=== PATIENT | female | born 1955 | race African-American/Black ===

== ENCOUNTER 2016-05-22 00:53 | Emergency (ER) | payer OTHER ==
[~2016-05-22] VITALS: Ht 170.2 cm; Wt 86.2 kg
[2016-05-22] MEDS ORDERED: SIMVASTATIN40 MG ORAL (01:11)
[2016-05-22 01:15] VITALS: BP 137/73
[2016-05-22] MEDS ORDERED: Ketorolac 30mg Inj IV ONE (01:30)
--- NOTE | 2016-05-22 01:32 | Emergency Room Report ---
History of Present Illness General Chief Complaint: General Complaint Source: Patient Present Illness HPI Is a 61-year-old female who presents with chief complaint of epigastric pain the last 2 days. No appetite. Has not eaten anything. Heaters weak. No bowel movement. Nausea but no vomiting. Heaters weak. Denies any urinary complaint. No cough or congestion. No chest pain. Allergies: Coded Allergies: No Known Allergies (Unverified , 05/22/16) Patient History Past Medical History: see triage record, old chart reviewed Past Surgical History: other Pertinent Family History: none Social History: Denies: smoking Last Menstrual Period: NO MORE Now: No : 0 Para: 0 Immunizations: other Reviewed Nursing Documentation: PMH: Agreed, PSxH: Agreed Review of Systems Constitutional: Reports: weakness Eye: Denies: blurred vision, eye pain ENT: Denies: ear pain, nose congestion, throat swelling Respiratory: Denies: cough, shortness of breath Cardiovascular: Denies: chest pain, palpitations Gastrointestinal: Reports: abdominal pain, Denies: diarrhea, nausea, vomiting Musculoskeletal: Denies: back pain, joint pain Skin: Denies: rash Neurological: Denies: headache, numbness Endocrine: Denies: increased thirst, increased urine Hematologic/Lymphatic: Denies: easy bruising All Other Systems: negative except mentioned in HPI Physical Exam Vital Signs Date Time Temp Pulse Resp B/P Pulse Ox O2 Delivery O2 Flow Rate FiO2 05/22/16 01:02 100.9 100 18 143/92 95 Room Air vitals with low-grade fever Sp02 EP Interpretation: reviewed, normal General Appearance: well appearing, no apparent distress, alert Head: normocephalic, atraumatic Eyes: bilateral eye EOMI, bilateral eye PERRL ENT: hearing grossly normal, normal pharynx Neck: full range of motion, supple, no meningismus Respiratory: chest non-tender, lungs clear, normal breath sounds Cardiovascular #1: regular rate, rhythm, no murmur Gastrointestinal: normal bowel sounds, non tender, no mass, no organomegaly, no bruit, non-distended Musculoskeletal: back normal, gait/station normal, normal range of motion Psychiatric: mood/affect normal Skin: warm/dry Medical Decision Making Diagnostic Impression: Primary Impression: Abdominal pain Qualified Codes: R10.13 - Epigastric pain Additional Impressions: Dehydration Proteinuria UTI (urinary tract infection) Qualified Codes: N30.00 - Acute cystitis without hematuria ER Course Patient presents with epigastric pain and low-grade fever. She may have a mild enteritis/viral illness. Maybe urinary tract infection. I see no evidence of acute abdomen, obstruction, or pneumonia. CT scan showed right lung base infiltrate. This is most likely atelectasis. She has no cough or fever. Lungs are clear. Oxygen 100%. The high density finding in the rectum is probably the Pepto-Bismol that she took yesterday. No evidence of rectal bleeding. Lab Results Impression labs unremarkable CT/MRI/US Diagnostic Results CT/MRI/US Diagnostic Results : Imaging Test Ordered: CT abdomen and pelvis Impression Read by radiologist. Normal appendix. No diverticulitis. Right lung base infiltrate. Last Vital Signs Date Time Temp Pulse Resp B/P Pulse Ox O2 Delivery O2 Flow Rate FiO2 05/22/16 01:02 100.9 100 18 143/92 95 Room Air Status: improved Disposition: HOME, SELF-CARE Condition: Stable Scripts Omeprazole Magnesium (PRILOSEC OTC) 20 Mg Tablet. 20 MG ORAL DAILY, #30 TAB Prov: SHALINI ARCOS M.D. 05/22/16 Cephalexin* (KEFLEX*) 500 Mg Capsule 500 MG ORAL TID, #21 CAP 0 Refills Prov: SHALINI ARCOS M.D. 05/22/16 Additional Instructions: Followup with your DrMaynor in 2 to 3 days. Return if symptom worsen. SHALINI ARCOS M.D. May 22, 2016 01:32
[2016-05-22 02:01] LABS: APPEARANCE,URINE CLEAR; KETONES,URINE 3+ (NEGATIVE); LEUKOCYTE ESTERASE ,URINE 1+ (NEGATIVE); NITRITE,URINE NEGATIVE (NEGATIVE); PH,URINE 5 (4.5-8.0); PROTEIN,URINE 2+ (NEGATIVE); UROBILINOGEN,URINE 1 MG/DL (0.0-1.0)
[2016-05-22 02:02] LABS: BASOPHILS % (AUTO) 1.7 % (0.0-2.0); LYMPHOCYTES % (AUTO) 8.3 % (20.0-45.0); MEAN CORPUSCULAR HEMOGLOBIN 24.6 PG (27.0-31.0); MEAN CORPUSCULAR VOLUME 77 FL (80-99); MEAN PLATELET VOLUME 7.7 FL (6.5-10.1); MONOCYTES % (AUTO) 11.7 % (1.0-10.0); NEUTROPHILS % (AUTO) 78.2 % (45.0-75.0); PLATELET COUNT 196 K/UL (150-450); RED BLOOD COUNT 5.55 M/UL (4.20-5.40); RED CELL DISTRIBUTION WIDTH 12.4 % (11.6-14.8)
[2016-05-22 02:10] LABS: BACTERIA,URINE FEW /HPF; SQUAMOUS EPITHELIAL CELL,UR MANY /LPF (NONE/OCC)
[2016-05-22 02:15] LABS: ALANINE AMINOTRANSFERASE 10 U/L (3-33); ALBUMIN/GLOBULIN RATIO 0.9 (1.0-2.7); ANION GAP 19 (5-15); ASPARTATE AMINO TRANSFERASE 19 U/L (5-40); CALCIUM 9.3 mg/dL (8.6-10.2); CARBON DIOXIDE 24 mEQ/L (20-30); CHLORIDE 91 mEQ/L (98-107); CREATININE 1.1 mg/dL (0.5-0.9); GLOMERULAR FILTRATION RATE > 60 mL/min (>60); HEMOLYSIS 15; LIPASE 30 U/L (< 60); POTASSIUM 3.8 mEQ/L (3.4-4.9); SODIUM 134 mEQ/L (135-145); TOTAL PROTEIN 8.6 g/dL (6.6-8.7)
[2016-05-22] MEDS ORDERED: cefTRIAXone 1 GM in NS 55 ML IVPB ONE (02:30)
[2016-05-22 03:15] VITALS: BP 134/71
[2016-05-22] MEDS ORDERED: KEFLEX500 MG ORAL (04:06)
[2016-05-22] MEDS ORDERED: PRILOSEC OTC20 MG ORAL (04:06)
[2016-05-22 04:15] VITALS: BP 118/65
[2016-05-22 04:28] VITALS: BP 118/65
--- NOTE | 2016-05-22 09:41 | Diagnostic Imaging Report ---
Indications: Abdominal pain Technique: Continuous helical CT imaging of the abdomen and pelvis was performed with automatic exposure control following administration of nonionic IV contrast only, on a Siemens sensation [address] scanner. Axial, coronal, sagittal images were reconstructed at 5 mm slice thickness. No oral contrast was administered per requesting physician's order, despite no contraindications listed in either submitted clinical data or tech note.. CTDI volume(s): 17 mGy Total DLP: 985 mGy-cm Findings: Comparison: None Lack of oral contrast limits evaluation of gastrointestinal tract, nondilated throughout. Appendix not identified. Scattered high attenuation material in the lumen of right-sided colon. Segment of sigmoid colon underdistended, limiting evaluation. No obvious mural thickening, adjacent stranding, extraluminal gas or fluid collections identified. Gallbladder partially contracted, limiting evaluation. No obvious acute abnormality. Apparent mild dilation of right renal collecting system versus adjacent parapelvic cysts. Right ureter nondilated. No surrounding stranding. No associated stone. Calcified masses in uterus. Underdistended urinary bladder demonstrates apparent mild diffuse mural thickening. Liver, pancreas, spleen, adrenal glands, left kidney and unopacified ureter bilateral adnexal regions, vascular structures, retroperitoneum, mesentery, remainder visualized abdominopelvic anatomy unremarkable. Heart enlarged. Increased interstitial markings and superimposed patchy airspace opacities in the dependent portions of both lung bases, right greater than left. Small coarse nodular calcifications in left breast, incompletely imaged. Disc space narrowing with marginal osteophyte formation, vacuum phenomenon and lumbar spine. Moderate compression fracture of L4 vertebral body superior endplate with 20-30% height loss. IMPRESSION: No evidence of acute abdominopelvic disease, with limitation as described. Subtle but potentially significant abnormalities the gastrointestinal tract may be missed. Repeat CT scan with full oral and IV contrast preparation recommended for more complete evaluation, as clinically indicated Nonvisualization of appendix. Correlate with surgical history. Right colonic intraluminal high attenuation material likely represent previously ingested contrast or ingested material. Correlate historically. Contraction of gallbladder, possibly due to recent meal, limits evaluation. No obvious acute abnormality. Correlate clinically. Moderate hydronephrosis versus parapelvic cysts. Ultrasound correlation suggested. Calcified uterine fibroids Apparent mural thickening of urinary bladder--underdistention versus hypertrophy versus cystitis Pulmonary bibasal nonspecific interstitial changes may be atelectatic, congestive, or inflammatory; subsegmental atelectasis. Superimposed pneumonia, particularly in the right lung base, cannot be excluded. Correlate clinically. Cardiomegaly Left breast calcifications most likely degenerated fibroadenomas. Mammography correlation suggested. Degenerative spondylosis L4 vertebral body compression fracture probably old. Correlate clinically. this correlates with [facility] preliminary report.
== END 2016-05-22 04:28 | disposition home or self-care (01) ==
LOC: EMR 01:25
DX: R10.13 Epigastric pain (principal); E86.0 Dehydration; R80.9 Proteinuria, unspecified; N30.00 Acute cystitis without hematuria
CPT/HCPCS: 36415; 74177; 80053; 81003; 83690; 85025; 96360; 96361; 96374; 96375; 99284; J0696; J1885; J2405; Q9967